=== PATIENT | male | born 1970 | race Caucasian/White ===

== ENCOUNTER 2018-06-22 20:22 | Emergency (ER) | payer OTHER ==
[~2018-06-22] VITALS: Ht 165.1 cm; Wt 86.0 kg
[2018-06-22 20:24] VITALS: BP 137/81
--- NOTE | 2018-06-22 21:49 | NUR ---
PT WAS TAKEN TO BED 07.
--- NOTE | 2018-06-22 21:51 | NUR ---
PATIENT PRESENTS TO ED WITH RIGHT HAND LACERATION X10 DAYS AGO. PATIENT STATES HE WAS COOKING AND CUT HIS HAND. PATIENT STATES HE IS UTD ON TETANUS VACCINE AND REFUSES ONE TODAY. PATIENT STATES HE IS TAKING IBUPROFEN FOR THE PAIN IN HIS HAND AND STATES IT HELPS ALLEVIATE PAIN. PATIENT PRESENTS WITH 1 INCH LACERATION WHITE AROUND EDGES NO REDNESS, SWELLING, OR DRAINAGE NOTED AT THIS TIME. PATIENT STATES "I KEEP IT CLEAN". PATIENT STATES HE WANTS STITCHES D/T RE OPENING WHEN HE COOKS. ER MD MADE AWARE OF PATIENT STATUS. PATIENT DENIES FEVERS, N/V. WILL CONTINUE TO MONITOR.
--- NOTE | 2018-06-22 22:08 | NUR ---
Dr. Camacho evaluating patient at bedside.
[2018-06-22 22:53] VITALS: BP 137/81
--- NOTE | 2018-06-22 22:53 | NUR ---
Patient discharged with v/s stable. Written and verbal after care instructions given and explained. Patient verbalized understanding. Ambulatory with steady gait. All questions addressed prior to discharge. Advised to follow up with PMD.
== END 2018-06-22 22:53 | disposition home or self-care (01) ==
LOC: MED 20:22
DX: S61.411A Laceration without foreign body of right hand, initial encounter (principal); X58.XXXA Exposure to other specified factors, initial encounter; Y93.89 Activity, other specified; Y92.89 Other specified places as the place of occurrence of the external cause; Y99.8 Other external cause status
CPT/HCPCS: 12001; 99283

== ENCOUNTER → 2019-03-11 00:09 | Emergency (ER) | payer SELFPAY ==
--- NOTE | 2019-03-11 00:09 | NUR ---
PATIENT LEFT WITHOUT BEING SEEN BY DR. VICK. PT LEFT FROM [facility] UPON ARRIVAL. REFUSED TREATMENT OR TO BE SEEN BY MD. NO FURTHER CARE PROVIDED FOR PATIENT.
== END | disposition left against medical advice (07) ==
LOC: MED 00:09
DX: M79.643 Pain in unspecified hand (principal); Z53.21 Procedure and treatment not carried out due to patient leaving prior to being seen by health care provider

== ENCOUNTER 2019-04-10 05:39 | Emergency (ER) | payer OTHER ==
[~2019-04-10] VITALS: Ht 167.6 cm; Wt 86.2 kg
[2019-04-10 05:40] VITALS: BP 137/92
--- NOTE | 2019-04-10 05:40 | NUR ---
PT JULITO DELCID. TAKEN TO BED 11
[2019-04-10] MEDS ORDERED: BACITRACIN OINT 500 UNITS/GM PKT TP ONE (06:00)
[2019-04-10] MEDS ORDERED: KETOROLAC 30 MG/ML VIAL IM ONE (06:00)
--- NOTE | 2019-04-10 06:00 | NUR ---
JULITO S/P MECHANICAL FALL, PT STATES HE WAS RIDING HIS SCOOTER TO WORK AND TRIPPED OVER THE HANDLE BARS AND LANDED ON HIS MOUTH. DENIES LOC. LACERATION NOTED TO LOWER LEG, NO ACTIVE BLEEDING AT THIS TIME. HX DENIES Addendum: 04/10/19 at 0714 by [facility] ABRASION TO LOWER LIP NOTED
[2019-04-10 07:13] VITALS: BP 135/86
== END 2019-04-10 07:11 | disposition home or self-care (01) ==
LOC: MED 05:39
DX: S02.5XXA Fracture of tooth (traumatic), initial encounter for closed fracture (principal); S63.501A Unspecified sprain of right wrist, initial encounter; S00.511A Abrasion of lip, initial encounter; Z90.49 Acquired absence of other specified parts of digestive tract; V87.8XXA Person injured in other specified noncollision transport accidents involving motor vehicle (traffic), initial encounter; Y93.89 Activity, other specified; Y92.488 Other paved roadways as the place of occurrence of the external cause; Y99.8 Other external cause status
CPT/HCPCS: 73130; 96372; 99283; J1885; Q0092

== ENCOUNTER 2019-04-30 02:16 | Emergency (ER) | payer OTHER ==
[~2019-04-30] VITALS: Ht 165.1 cm; Wt 86.2 kg
[2019-04-30 02:20] VITALS: BP 121/81
--- NOTE | 2019-04-30 02:20 | NUR ---
48 YO M BIBA FROM [address]REET. PER EMS, CIVILIAN CALLED 911 AFTER WITNESSING PT FALL DOWN. PT ADMITS TO ETOH BUT DOESN'T REMEMBER HOW MUCH HE DRANK. HE WAS FOUND SITTING ON GROUND WITH VSS. NO LOC. NO TRAUMA, INJURY NOTED. PT DENIES PAIN. STRONG ALCOHOL ODOR NOTED. PT AWAKE, A/O TO PERSON, DAY. SOME CONFUSION NOTED. DENIES PMH. SKIN PINK, WARM, DRY. BREATHING EVEN, UNLABORED.
--- NOTE | 2019-04-30 03:00 | NUR ---
PT SLEEPING SOUNDLY. VSS. SKIN PINK, WARM, DRY. BREATHING EVEN, UNLABORED.
--- NOTE | 2019-04-30 04:45 | NUR ---
PT ROAD TESTED. AMBULATORY WITH STEADY GAIT.
[2019-04-30 05:00] VITALS: BP 101/58
== END 2019-04-30 05:00 | disposition home or self-care (01) ==
LOC: MED 02:16
DX: F10.129 Alcohol abuse with intoxication, unspecified (principal); M79.606 Pain in leg, unspecified; Y90.7 Blood alcohol level of 200-239 mg/100 ml
CPT/HCPCS: 36415; 99283; G0482

== ENCOUNTER 2019-06-09 07:10 | Emergency (ER) | payer OTHER ==
[~2019-06-09] VITALS: Ht 167.6 cm; Wt 86.2 kg
[2019-06-09 07:15] VITALS: BP 132/77
--- NOTE | 2019-06-09 07:20 | NUR ---
48 Y MALE BIB SELF C/O BILATERAL EYE PAIN UPON AWAKENING THIS AM. EYE NOTED TO BE RED AND TEARFUL. PATIENT STATES BOTH EYES ITCH AND WERE CRUSTY THIS AM. PAIN 9/10. VSS. [id number]. BED IS DOWN, LOCKED, BED RAIL X 1, ERMD TO SEE PT. PMH- DENIES
--- NOTE | 2019-06-09 07:45 | NUR ---
DR BAKER AT BEDSIDE
--- NOTE | 2019-06-09 07:51 | NUR ---
VISUAL ACUITY PERFORMED BOTH EYES 20/40 L EYE 20/40 R EYE 20/30
--- NOTE | 2019-06-09 07:53 | NUR ---
PATIENT STATES HE SAW HIS EYE DOCTOR APPROX 6 MONTHS AGO AND WAS RECOMMENDED TO GET PRESCRIPTION GLASSES. PATIENT STATES HE HAS NOT DONE THAT YET
[2019-06-09 08:09] VITALS: BP 133/75
--- NOTE | 2019-06-09 08:09 | NUR ---
Patient discharged with v/s stable. Written and verbal after care instructions given and explained. Patient alert, oriented and verbalized understanding of instructions. Ambulatory with steady gait. All questions addressed prior to discharge. ID band removed. Rx of ERYTHROMYOCIN OPHTHALMIC SOLUTION given. Patient educated on indication of medication including possible reaction and side effects. Opportunity to ask questions provided and answered. PT INSTRUCTED TO USE WARM COMPRESS ON EYES 4-5 TIMES A DAY TO HELP WITH EYE CRUST. PT INSTRUCTED TO FOLLOW UP WITH OPTHALMIST REGARDING GLASSESS.
== END 2019-06-09 08:09 | disposition home or self-care (01) ==
LOC: MED 07:10
DX: H10.9 Unspecified conjunctivitis (principal)
CPT/HCPCS: 99283

== ENCOUNTER 2022-08-19 06:45 | Emergency (ER) | payer OTHER ==
[~2022-08-19] VITALS: Ht 167.6 cm; Wt 89.4 kg
[2022-08-19 07:01] VITALS: BP 129/79
--- NOTE | 2022-08-19 07:06 | NUR ---
PT AMBULATED TO ED 5, REPORT GIVEN TO NAVIN ENRIQUEZ
--- NOTE | 2022-08-19 07:17 | NUR ---
52YR OLD MALE BIB SELF C/O LACERATIONS TO FINGERS [id number]. SWELLING TO DIGITS ON CARO HANDS. PAIN IS SHARP WITH 3/10 PAIN LEVEL. SMALL LACS TO DIGITS FROM SKIN CRACKING. PT STATES HE HAS HAD THIS FOR A MONTH AND HAS BEEN PUTTING OTC CREAM. PT IS A&OX4 SKIN IS WARM AND DRY. PT SITTING ON BED AT ITS LOWEST LEVEL. NKDA HIGH CHOL PRE DM
--- NOTE | 2022-08-19 07:24 | NUR ---
Report recieved from MINA Daigle for transfer of care.
--- NOTE | 2022-08-19 07:25 | NUR ---
Dr. Rocha examining patient.
[2022-08-19] MEDS ORDERED: KETO2CRE3 TP (07:42)
[2022-08-19] MEDS ORDERED: HYD2.5O TP (07:42)
--- NOTE | 2022-08-19 07:48 | NUR ---
Patient discharged with v/s stable. Written and verbal after care instructions given. Patient alert, oriented and verbalized understanding of instructions. Ambulatory with steady gait. All questions addressed prior to discharge. ID band removed. Patient advised to follow up with PMD. Rx of Hydrocortisone and Ketoconazole given. Opportunity to ask questions provided and answered.
--- NOTE | 2022-08-19 07:49 | NUR ---
The patient's care was reviewed and supervised by Evelina Savage RN.
== END 2022-08-19 07:48 | disposition home or self-care (01) ==
LOC: MED 06:45
DX: L30.9 Dermatitis, unspecified (principal); B35.1 Tinea unguium; Z90.49 Acquired absence of other specified parts of digestive tract
CPT/HCPCS: 99283

== ENCOUNTER 2023-12-31 14:04 | Emergency (ER) | payer OTHER ==
[~2023-12-31] VITALS: Ht 170.2 cm; Wt 91.8 kg
[~2023-12-31 14:04] MED LIST: HYD2.5O TP; KETO2CRE3 TP
[2023-12-31 14:18] VITALS: BP 143/88; PULSE 83; RESP 20; TEMP 97.7; O2SAT 99
[2023-12-31] MEDS ORDERED: BACI-418 TP (14:45)
[2023-12-31] MEDS ORDERED: HYD2.5O TP (14:46)
== END 2023-12-31 14:52 | disposition home or self-care (01) ==
LOC: MED 14:04
DX: R21 Rash and other nonspecific skin eruption (principal); L29.9 Pruritus, unspecified; Z79.899 Other long term (current) drug therapy
CPT/HCPCS: 99282